=== PATIENT | female | born 1980 | race Caucasian/White ===

== ENCOUNTER 2016-07-16 23:12 | Emergency (ER) | payer OTHER ==
--- NOTE | 2016-07-17 00:15 | ERNOTE ---
Lower Extremity HPI - General Time Seen by Provider: 07/17/16 00:08 Source: patient - Immun/Allergies/Home Medications Immunizations: IMMUNIZATION HX Immunizations Up to Date Yes History of Influenza Vaccine No Hx Pneumococcal Vaccination No Allergies/Adverse Reactions: Allergies Allergy/AdvReac Type Severity Reaction Status Date / Time adhesive Allergy Intermediate Hives Verified 07/16/16 23:33 aspirin AdvReac Intermediate Nausea Verified 07/16/16 23:33 Home Medications: HOME MEDICATIONS Ranitidine HCl [Zantac] 150 mg PO BID 02/10/14 [Last Taken Unknown] Multivitamin 03/07/16 [Last Taken Unknown] Nystatin 3 ml PO QID #240 ml 03/07/16 [Last Taken Unknown] - History of Present Illness Narrative: pt comes in again for discoloration of left leg and pain in the entire leg. 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 a recent U/S from two days ago ruled out a DVT. Review of Systems - Review of Systems Constitutional: Present: no symptoms reported EYE: Present: no symptoms reported ENT: Present: no symptoms reported Respiratory: Present: no symptoms reported Cardiology: Present: no symptoms reported Gastrointestinal/Abdominal: Present: no symptoms reported Musculoskeletal: Present: See HPI - Patient's Past Medical History Patient History - Medical: No pertinent hx, Obesity, Other Patient History - Cardiac/Respiratory: No pertinent hx Patient History - Cancer: No Hx of Cancer Patient History - Surgical Procedures: Tubal Ligation Patient History - Other: None - Family History Mother Family History - Medical: Other Father Family History - Medical: Other Grandmother-Paternal Family History - Medical: Other Grandfather-Maternal Family History - Medical: Diabetes Type 2 Insulin Dependent - Social History Living Situations: home Psych History: No pertinent hx Smoking Status: Current every day smoker Patient requests Smoking Cessation Consult: No Initiate information on Smoking Cessation: No Alcohol Use: none Drug Use: none - Immunizations Immunizations Up to Date: Yes Hx Pneumococcal Vaccination: No History of Influenza Vaccine: No Physical Exam - Physical Exam General Appearance: Present: wd/wn, alert, no apparent distress Respiratory: Present: no respiratory distress, normal breath sounds, no accessory muscle use, chest nontender, lungs clear Cardiovascular/Chest: Present: regular rate, rhythm, no murmur, normal peripheral pulses Extremity Exam: Present: other - left leg is same as right , slight discoloration noted laterally. Negative Homans' sign. Neurological Exam: Present: alert, oriented, normal mood/affect ED Progress - Vital Signs Patient's Vital Signs:: I have reviewed the patient's vital signs. Vital Signs: Vital Signs 07/16/16 23:28 Temperature 36.5 C Pulse Rate 90 Respiratory 18 Rate Blood Pressure 137/77 O2 Sat by Pulse 99 Oximetry - Progress/Reassessment Chief Complaint: Lower Extremity Pain/ Injury Plan - Plan Plan: this patient does not appear to have a DVT by exam or recent U/S. Will treat for pain Departure Clinical Impression: Left leg pain Clinical Impression: (Ruled Out): The administrative codes within the [employer] content you are accessing may have as of 07/11/2016. Please contact your IT Dept/Help Desk and request the latest Regulatory release be installed. IT Dept/Help Desk- Please refer to our FAQ page ([email or web address]) or contact [employer] Customer Support at [email or web address] - Departure Disposition: Home self-care Condition: Good Instructions: Muscle Strain, [id number] Referrals: Hilario Huerta MD [Primary Care Provider] -
[2016-07-17] MEDS ORDERED: ACETAMINOPHEN 325 MG TABLET PO ONE (00:17)
[2016-07-17] MEDS ORDERED: ACETAMINOPHEN 325 MG TABLET ONE (00:19)
--- OUTSIDE RECORDS SUMMARY | 2016-07-17 00:21 | XMS REPORT | Continuity of Care Document ---
:1980 Author Organization [facility] ([facility]) Address [address] [place] [address] Phone [phone] Care Team Providers Name Role Phone Hilario Huerta Primary Care Provider [phone] Source Comments This disclosure is being made pursuant to the Care Everywhere program, applicable federal and state laws, and may not contain all informaitonavailable regarding this patient.[facility] ([facility]) Active Allergies and Adverse Reactions Allergen Noted Date Severity Reactions Comments Aspirin 07/24/2013 Low Nausea & Vomiting,OTHER numbness Current Medications Prescription Sig. Disp. Refills Start Date End Date Status baclofen 10 mg tablet Take 10 mg by Active mouth 3 times daily. Out of medication cyclobenzaprine 10 mg Take 10 mg by Active tablet mouth at bedtime. methylPREDNISolone 16 mg Take 16 mg by Active tablet mouth daily. Medrol dose pack stock with 4 days left in pack c/o swelling docusate 100 mg capsule Take 100 mg by Active mouth 2 times daily as needed. diphenhydrAMINE 25 mg Take 25 mg by Active capsule mouth at bedtime as needed. vitamin E 400 unit Take 400 Units by Active capsule mouth daily. metFORMIN 500 mg tablet Take 500 mg by Active mouth 2 times daily with meals. Stopped 2 weeks ago. Was taking for polycystic ovary disease ranitidine 75 mg tablet Take 75 mg by Active mouth 2 times daily. buPROPion (WELLBUTRIN-SR) Take 150 mg by Active 150 mg SR tablet 12 hour mouth 2 times daily. topiramate 100 mg tablet Take 100 mg by Active mouth 2 times daily. salicylic acid 40 % apply topically Active plaster at bedtime. phentermine 30 mg capsule Take 30 mg by Active mouth every morning after breakfast. Take 2 hours after breakfast. diazepam 2 mg tablet Take 1-2 Tabs by 30 Tab 0 07/24/2013 Active mouth 3 times daily as needed. Indications: MUSCLE SPASM HYDROcodone-acetaminophen Take 1 Tab by 35 Tab 0 07/24/2013 Active 7.5-500 mg per tablet mouth every 4 hours as needed. Indications: PAIN nystatin 100,000 unit/mL Take 5 mL by mouth 280 mL 1 07/24/2013 Active suspension 4 times daily. Indications: ORAL CANDIDIASIS ondansetron 4 mg Take 1 Tab by 6 Tab 0 07/24/2013 Active disintegrating tablet mouth every 6 hours as needed. Indications: Nausea and emesis Active Problems Not on file Social History Tobacco Use Types Packs/Day Years Used Date Current Every Day Smoker Cigarettes 1 Smokeless Tobacco: Current User Tobacco Cessation:Ready to Quit: No Comments: Alcohol Use Drinks/Week oz/Week Comments No Last Filed Vital Signs Vital Sign Reading Time Taken Blood Pressure 126/79 08/01/2013 9:00 AM CDT Pulse 85 08/01/2013 9:00 AM CDT Temperature 37.5 C (99.5 F) 08/01/2013 9:00 AM CDT Respiratory Rate 18 07/24/2013 3:03 PM CDT Height 1.676 m (5' 5.98") 08/01/2013 9:00 AM CDT Weight 81.693 kg (180 lb 1.6 oz) 08/01/2013 9:00 AM CDT Body Mass Index 29.08 08/01/2013 9:00 AM CDT Oxygen Saturation 98% 07/24/2013 3:03 PM CDT Plan of Care Health Maintenance Due Date Last Done Comments Hepatitis B Vaccine (1 of 3 - Primary Series) 1980 Tdap Vaccine 1991 Lipid Disorder Screening 1998 MMR Vaccine 1998 Td Vaccine 1998 Varicella Vaccine (1 of 2 - Adult - No Evidence of 1998 Immunity) Pneumococcal Vaccine (1 of 1 - PPSV23) 1999 Cervical Cancer Screening 2010 Influenza Vaccine: Seasonal (#1) 11/11/2015 Results from Last 3 Months Not on file
[2016-07-17 01:17] VITALS: BP 132/77
== END 2016-07-17 00:24 | disposition home or self-care (01) ==
LOC: ER 23:12
DX: M79.605 Pain in left leg (principal); F17.210 Nicotine dependence, cigarettes, uncomplicated

== ENCOUNTER 2016-09-10 19:09 | Emergency (ER) | payer OTHER ==
[2016-09-10 19:42] VITALS: BP 129/71
--- OUTSIDE RECORDS SUMMARY | 2016-09-10 23:54 | XMS REPORT | Continuity of Care Document ---
:1980 Author Organization [facility] ([facility]) Address [address] [place] [address] Phone [phone] Care Team Providers Name Role Phone Hilario Huerta Primary Care Provider [phone] Source Comments This disclosure is being made pursuant to the Care Everywhere program, applicable federal and state laws, and may not contain all informaitonavailable regarding this patient.[facility] ([facility]) Active Allergies and Adverse Reactions Allergen Noted [...]
== END 2016-09-10 23:30 | disposition left against medical advice (07) ==
LOC: ER 19:09
DX: Z53.21 Procedure and treatment not carried out due to patient leaving prior to being seen by health care provider (principal)